=== PATIENT | male | born 1995 | race Caucasian/White ===

== ENCOUNTER 2020-10-19 01:30 | Emergency (ER) | payer OTHER | END 2020-10-19 10:37 | LOC: ERS 01:30 | DX: S30.811A Abrasion of abdominal wall, initial encounter (principal); F17.200 Nicotine dependence, unspecified, uncomplicated; Z20.822 Contact with and (suspected) exposure to COVID-19; V89.2XXA Person injured in unspecified motor-vehicle accident, traffic, initial encounter | CPT/HCPCS: 36415; 71260; 74177; 80053; 80306; 80307; 81003; 81015; 82550; 84443; 85025; Q9967; U0002; U0005 ==